=== PATIENT | male | born 1940 | race Caucasian/White ===

== ENCOUNTER 2018-08-05 19:54 | Inpatient (IN) | payer OTHER ==
[~2018-08-05] VITALS: Ht 180.3 cm; Wt 85.7 kg
[~2018-08-05 19:54] MED LIST: AMLODIPINE; ASA81 MG; ASPIRIN; SPIRIVA HANDIH18 MCG; Z.0.AMLODIPINE BESY1; Z.0.LOTENSIN20 MG PO
[2018-08-05] MEDS ORDERED: MORPHINE SULFATE 2 MG/ML SYR IV STA ×2 (20:07→22:39)
[2018-08-05] MEDS ORDERED: PANTOPRAZOLE 40 MG 10ML VIAL IV STA (20:07)
[2018-08-05] MEDS ORDERED: ONDANSETRON HCL INJ 2 MG/ML VIAL IV STA (20:07)
[2018-08-05] MEDS ORDERED: ASPIRIN 81 MG CHEW TAB PO ONE (20:15)
[2018-08-05] MEDS ORDERED: ASPIRIN 81 MG ENTERIC COATED PO ONE (20:23)
[2018-08-05 20:25] LABS: BASOPHILS # (AUTO) 0.1 (0.0-0.1); BASOPHILS % 0.7 % (0.0-1.0); EOSINOPHILS # (AUTO) 0.5 (0.0-0.4); EOSINOPHILS % 4.8 % (0.0-6.0); HEMATOCRIT 42.1 % (38.2-49.6); HEMOGLOBIN 13.5 g/dL (14.0-18.0); LYMPHOCYTES # (AUTO) 1.5 (1.0-3.2); LYMPHOCYTES % 14.9 % (18.0-39.1); MEAN CORPUSCULAR HEMOGLOBIN 27.4 pg (28-32); MEAN CORPUSCULAR HGB CONC 32.1 g/dL (31-35); MEAN CORPUSCULAR VOLUME 85.6 fL (81-99); MONOCYTES # (AUTO) 1.2 (0.2-0.8); MONOCYTES % 11.8 % (4.4-11.3); NEUTROPHILS # (AUTO) 6.8 (2.1-6.9); NEUTROPHILS % 67.3 % (38.7-80.0); PLATELET COUNT 194 x10e3/uL (140-360); RED BLOOD COUNT 4.92 x10e6/uL (4.3-5.7); RED CELL DISTRIBUTION WIDTH 15.7 % (11.7-14.4)
[2018-08-05 20:33] LABS: INR 0.88; PROTHROMBIN TIME 12.8 seconds (11.9-14.5)
[2018-08-05 20:34] LABS: PARTIAL THROMBOPLASTIN TIME 30.7 seconds (23.8-35.5)
[2018-08-05 20:44] LABS: ALBUMIN 3.9 g/dL (3.5-5.0); ALBUMIN/GLOBULIN RATIO 1.1 (0.8-2.0); ANION GAP 13.6 mmol/L (8-16); CALCIUM 9.3 mg/dL (8.4-10.2); CREATININE, SERUM 1.44 mg/dL (0.72-1.25); MAGNESIUM 1.9 MG/DL (1.3-2.1); POTASSIUM 3.6 mmol/L (3.5-5.1)
[2018-08-05 20:51] LABS: CREATINE KINASE MB 1.2 ng/mL (0-5.0)
[2018-08-05] MEDS ORDERED: ADVAIR 100-501 EACH INH (21:00)
[2018-08-05] MEDS ORDERED: BENAZEPRIL HCL20 MG PO (21:00)
[2018-08-05] MEDS ORDERED: OMEPRAZOLE20 MG PO (21:00)
[2018-08-05] MEDS ORDERED: AMLODIPINE BESY10 MG PO (21:00)
[2018-08-05] MEDS ORDERED: VENTOLIN HFA18 GM INH (21:00)
[2018-08-05] MEDS ORDERED: TYLENOL # 31 EA PO (21:00)
--- NOTE | 2018-08-05 21:29 | Diagnostic Imaging Report ---
EXAM: CHEST SINGLE (PORTABLE), AP 1 view INDICATION: Chest pain COMPARISON: AP view of the chest September 21, 2011 FINDINGS: LINES/TUBES: None LUNGS: No consolidations or edema. PLEURA: No effusions or pneumothorax. HEART AND MEDIASTINUM: Normal size and contour. BONES AND SOFT TISSUES: No acute findings. Old left-sided rib fractures. IMPRESSION: No acute thoracic abnormality. Signed by: Dr. Joana Youngblood M.D. on 08/05/2018 9:26 PM
[2018-08-05 23:15] LABS: BILIRUBIN,URINE NEGATIVE (NEGATIVE); CLARITY,URINE CLEAR (CLEAR); COLOR,URINE YELLOW (YELLOW); KETONES,URINE NEGATIVE (NEGATIVE); LEUKOCYTE ESTERASE ,URINE NEGATIVE (NEGATIVE); NITRITE,URINE NEGATIVE (NEGATIVE); PROTEIN,URINE DIPSTICK TRACE (NEGATIVE); URINE UROBILINOGEN 0.2 mg/dL (0.2 - 1)
[2018-08-05 23:16] LABS: EPITHELIAL CELLS,URINE FEW /LPF; RBC,URINE 0-5 /HPF (0-5); WBC,URINE (MAN) 0-5 /HPF (0-5)
[2018-08-06] VITALS (20 sets, daily range): BP systolic 118–196; BP diastolic 66–94
[2018-08-06] MEDS ORDERED: ONDANSETRON HCL INJ 2 MG/ML VIAL IV PRN ×2 (00:45→19:30)
[2018-08-06] MEDS ORDERED: ENOXAPARIN SODIUM INJ 100 MG/ML SYR SC SCH (00:45)
[2018-08-06] MEDS ORDERED: NITROGLYCERIN 0.4 MG SUBL SL PRN (00:45)
[2018-08-06] MEDS ORDERED: MORPHINE SULFATE 2 MG/ML SYR IV PRN (00:45)
[2018-08-06] MEDS ORDERED: FAMOTIDINE 20 MG/2 ML VIAL IV SCH ×2 (00:45→09:00)
--- OUTSIDE RECORDS SUMMARY | 2018-08-06 01:03 | XMS REPORT ---
Author Author [facility] Address Unknown Phone Unavailable Care Team Providers [facility] Associate Professor Name Role Phone Quynh DE SOUZA Unavailable Unavailable Problems This patient has no known problems. Allergies, Adverse Reactions, Alerts This patient has no known allergies or adverse reactions. Medications This patient has no known medications. Results Test Description Test Time Test Comments Text Results Atomic Results Result Comments CHEST SINGLE (PORTABLE) 2018-08-05 21:25:00 [facility] [address] [place] [address] Patient Name: STEPHANIE SKINNER MR #: [id number] : 1940 Age/Sex: 78/M Req #: [id number] Adm Physician: Ordered by: SAURABH DE SOUZA MD Report #: [id number] Location: ER Room/Bed: Procedure: [id number] DX/CHEST SINGLE (PORTABLE) Exam Date: Exam Time: REPORT STATUS: Signed EXAM: CHEST SINGLE (PORTABLE), AP 1 view INDICATION: Chest pain COMPARISON: AP view of the chest September 21, 2011 FINDINGS: LINES/TUBES: None LUNGS: No consolidations or edema. PLEURA: No effusions or pneumothorax. HEART AND MEDIASTINUM: Normal size and contour. BONES AND SOFT TISSUES: No acute findings. Old left-sided rib fractures. IMPRESSION: No acute thoracic abnormality. Signed by: Dr. Hoang Rodriguez M.D. on 08/05/2018 9:26 PM Dictated By: HOANG RODRIGUEZ MD 25 Transcribed By: MARGE on 08/05/182125 COPY TO: SAURABH DE SOUZA MD
[2018-08-06 04:44] LABS: CREATINE KINASE MB 2.4 ng/mL (0-5.0)
[2018-08-06] MEDS ORDERED: ASPIRIN 81 MG ENTERIC COATED PO SCH (09:00)
[2018-08-06 10:26] LABS: CREATINE KINASE MB 6.2 ng/mL (0-5.0)
[2018-08-06] MEDS ORDERED: SODIUM CHLORIDE 0.45% 1,000 ML IV ONE (11:30)
[2018-08-06] MEDS ORDERED: ACETYLCYSTEINE 200 MG/1 ML 10ML VIAL PO SCH (11:30)
[2018-08-06] MEDS ORDERED: CLOPIDOGREL BISULFATE 75 MG TAB PO NR (11:30)
[2018-08-06] MEDS ORDERED: SODIUM CHLORIDE 0.9% 1000ML 1,000 ML IV SCH (11:39)
[2018-08-06] MEDS ORDERED: ACETYLCYSTEINE 200 MG/ML 4ML VIAL PO SCH (11:45)
[2018-08-06] MEDS ORDERED: IPRATROPIUM BROMIDE 0.02% 2.5 ML NEB NEB NR (13:00)
[2018-08-06] MEDS ORDERED: ACETAMINOPHEN/CODEINE 300MG - 30MG TAB PO PRN (13:00)
[2018-08-06] MEDS ORDERED: ALBUTEROL SULFATE HFA 8GM INHALATION AEROSOL INH PRN (13:00)
[2018-08-06] MEDS ORDERED: AMLODIPINE BESYLATE 10 MG TAB PO SCH (13:30)
--- NOTE | 2018-08-06 14:15 | Consultation ---
DATE OF CONSULTATION: August 06, 2018 CARDIOLOGY CONSULTATION REASON FOR CONSULTATION: Chest pain and STEMI. HISTORY OF PRESENT ILLNESS: Mr. Lopez is a 78-year-old gentleman with past medical history of hypertension, COPD, former smoker who presents to this institution with episode of severe chest pain at home. The patient reported that he was in his usual state of health up until last where he developed episodic left parasternal chest pressure, heaviness that lasted for several minutes and spontaneously subsided. He reported feeling a little bit more fatigued than normal. He had a repeat episode on Monday as well and did not think much of it as it subsided. Last night the patient had a severe episode, 10 out of 10 discomfort with radiation up to the left shoulder associated with dyspnea, nausea and malaise. He came into the emergency room with continuous chest pain and finally subsided after receiving morphine intravenously. His EKG showed borderline ST depressions in the inferolateral leads, and was admitted with observation for [place]. His serial cardiac biomarkers showed an elevation going from a troponin of 0.122 to 0.187 to 1.130, which ruled him in for acute myocardial infarction. Luckily the patient at my visit is chest pain free; however, he is apprehensive that he is going to get another chest discomfort episode. We had a long discussion in terms of management options and the patient is agreeable for heart catheterization. He is going to receive aspirin and 600 mg Plavix load in addition to beta amanda, statin. We are waiting for IV Lovenox also to wear off prior to taking him to the cardiac catheterization laboratory on an urgent basis. PAST MEDICAL HISTORY: 1. Hypertension, essential. 2. COPD, former smoker, quit 6 years ago. 3. Alcohol dependence. He says he drinks 1-2 drinks a day. PAST SURGICAL HISTORY: Reports right index finger surgery in the past and history of remote right leg fracture with surgical repair. FAMILY HISTORY: Mother in 60s of unknown cause. Father at 58 with his 7th heart attack. SOCIAL HISTORY: He is a former smoker. He used to smoke a pack to a pack and a half a day. He quit 4 years ago. Denies any illicit drug use. He reports two 7-ounce beers daily for many years. ALLERGIES: NO KNOWN DRUG ALLERGIES. HOME MEDICATIONS: 1. Aspirin 81 mg daily. 2. Norvasc 10 mg daily. 3. Benazepril 20 mg daily. 4. Advair 100/50 mcg discus one dose inhaled b.i.d. REVIEW OF SYSTEMS: GENERAL: Positive for fatigue, malaise. Denies any fevers or chills. HEENT: No headaches, visual complaints, sore throat or stuffy nose. RESPIRATORY: Denies any pleuritic chest pain. He has notable wheezing and nonproductive cough. CARDIOVASCULAR: Chest pain as per HPI. Denies any palpitations, orthopnea, PND, syncope or near syncope. GI: Denies any abdominal pain, bright red blood per rectum, melena, hematemesis, nausea or vomiting. : Denies any dysuria. Does have increased urinary frequency and nocturia and BPH type symptoms. MUSCULOSKELETAL: Positive for chronic arthritis in the leg and intermittent calf pain with ambulation. HEMATOLOGY: Positive for easy bruising. No bleeding. ENDOCRINE: Denies any heat or cold intolerance. NEUROLOGIC: Denies any focal weakness, numbness, tingling, seizures, headaches, TIA or stroke. The remainder of the review of systems is negative except as otherwise mentioned. PHYSICAL EXAMINATION VITAL SIGNS: Height 71 inches, weight 189 pounds, BMI 26.4, temperature 96.0, pulse 76, respiratory rate 20, blood pressure 144/73, O2 sat 94% on room air. GENERAL: This is well-nourished, well-developed gentleman who appears older than his stated age, currently in no apparent distress. HEENT: Normocephalic, atraumatic. Pupils equal, round and react to light. Extraocular movements are intact. Oropharynx is clear. NECK: No elevation of jugular venous pulsation. Faint bilateral carotid bruits. CARDIOVASCULAR: Regular rate and rhythm. Normal S1 and S2. A 2/6 systolic murmur at the left lower sternal border. LUNGS: Diffuse wheezing bilaterally with slight decreased air entry. ABDOMEN: Soft and nontender, obese, with normoactive bowel sounds. No hepatosplenomegaly. BACK: No costovertebral angle tenderness. EXTREMITIES: Warm with 1+ to 2+ bilateral radial pulses, 2+ bilateral femoral pulses, 2+ bilateral posterior tibialis pulse, diminished dorsalis pedis pulses bilaterally. There is some old wound from his right leg injury and his left pinky finger is deformed. NEUROLOGIC: Cranial nerves II-XII are intact. Strength is 5/5 and grossly nonfocal. PSYCHIATRIC: Normal fluent speech. Appropriate affect. No anxiety or delusion. LABORATORY DATA: White count 10.04, hemoglobin 13, hematocrit 42.1, platelets 194,000, sodium 141, potassium 3.6, chloride 105, bicarb 26, BUN 16, creatinine 1.44, glucose of 129, calcium of 9.3, AST 13, ALT 12, alkaline phosphatase 76, total protein 7.4, albumin 3.9, BNP 17.1, troponin went from 0.122 to 0.187 to 1.130. INR is 0.88. UA is unremarkable. Chest x-ray reveals COPD type changes but no acute abnormalities. EKG reveals sinus rhythm with diffuse ST segment depressions that are subtle in the inferolateral leads, perhaps circumflex ischemia. DIAGNOSES 1. Escalating angina over the course of 4 days, now with biomarker positive and has ruled in for a non-ST elevation myocardial infarction. 2. Chronic obstructive pulmonary disease, former smoker. 3. Hypertension, essential. 4. Hypercholesterolemia. 5. Presumably chronic kidney disease 3. PLAN/RECOMMENDATIONS: 1. From a cardiovascular standpoint, we had an extensive discussion with the patient and in terms of management options. Will proceed with definitive ischemic evaluation with a cardiac catheterization. We are worried that he may have another event shortly. 2. Will continue aspirin loaded with Plavix therapy. 3. Statin therapy. 4. Beta amanda therapy as tolerated. 5. Aggressive risk factor modification, medical therapy. 6. Further plans/recommendations to follow after cardiac catheterization. 7. Will go ahead and check echocardiogram to evaluate his left ventricular function. 8. Due to the extensive smoking history and bruit on exam, will do a carotid Duplex in case we find surgical 3-vessel disease and we will know how to proceed. Job#: [id number]
[2018-08-06] MEDS ORDERED: METOPROLOL TARTRATE 25 MG TAB PO SCH (17:00)
[2018-08-06] MEDS ORDERED: FENTANYL CITRATE/PF 100MCG/2 ML INJ ONE (17:32)
[2018-08-06] MEDS ORDERED: LIDOCAINE HCL 2% LOCAL 20 ML VIAL ONE (17:32)
[2018-08-06] MEDS ORDERED: MIDAZOLAM HCL 2 MG/2 ML VIAL ONE ×2 (17:32→18:11)
[2018-08-06] MEDS ORDERED: IOPAMIDOL 370 MG/ML 200 ML INFUS..BTL INJ ONE ×4 (17:33→18:46)
[2018-08-06] MEDS ORDERED: HEPARIN SOD/SOD CHLORIDE 2,000 ML ONE (17:33)
[2018-08-06] MEDS ORDERED: SODIUM CHLORIDE 0.9% 1000ML 1,000 ML ONE (17:33)
[2018-08-06] MEDS ORDERED: BIVALRIUDIN 250 MG/VIAL VIAL IV ONE (18:30)
[2018-08-06] MEDS ORDERED: SODIUM CHLORIDE 0.9% 50ML 50 ML ONE (18:34)
[2018-08-06] MEDS: SALMETEROL/FLUTICASONE 100/50 INH SCH (19:00)
[2018-08-06] MEDS ORDERED: CEFAZOLIN SOD 2 GM/D5W 50ML 50 ML IV ONE (19:18)
[2018-08-06] MEDS: SODIUM CHLORIDE 0.9% 1000ML 1,000 ML IV SCH (19:24)
[2018-08-06] MEDS ORDERED: ZOLPIDEM TARTRATE 5 MG TAB PO PRN (19:30)
[2018-08-06] MEDS ORDERED: MORPHINE SULFATE INJ 4 MG/ML INJ IV PRN (19:45)
[2018-08-06] MEDS: METOPROLOL TARTRATE 25 MG TAB PO SCH (21:00)
[2018-08-06] MEDS ORDERED: ATORVASTATIN 20 MG TAB PO SCH (21:00)
[2018-08-06] MEDS: ACETYLCYSTEINE 200 MG/ML 4ML VIAL PO SCH (21:00)
[2018-08-07] VITALS (22 sets, daily range): BP systolic 110–140; BP diastolic 60–92
[2018-08-07 05:00] LABS: BASOPHILS # (AUTO) 0.1 (0.0-0.1); BASOPHILS % 0.6 % (0.0-1.0); EOSINOPHILS # (AUTO) 0.6 (0.0-0.4); EOSINOPHILS % 4.7 % (0.0-6.0); HEMATOCRIT 37.3 % (38.2-49.6); HEMOGLOBIN 12.2 g/dL (14.0-18.0); LYMPHOCYTES # (AUTO) 1.3 (1.0-3.2); LYMPHOCYTES % 10.3 % (18.0-39.1); MEAN CORPUSCULAR HEMOGLOBIN 28.2 pg (28-32); MEAN CORPUSCULAR HGB CONC 32.7 g/dL (31-35); MEAN CORPUSCULAR VOLUME 86.3 fL (81-99); MONOCYTES # (AUTO) 1.4 (0.2-0.8); MONOCYTES % 11.3 % (4.4-11.3); NEUTROPHILS # (AUTO) 9.1 (2.1-6.9); NEUTROPHILS % 72.6 % (38.7-80.0); PLATELET COUNT 180 x10e3/uL (140-360); RED BLOOD COUNT 4.32 x10e6/uL (4.3-5.7); RED CELL DISTRIBUTION WIDTH 15.4 % (11.7-14.4)
[2018-08-07] MEDS: SODIUM CHLORIDE 0.9% 1000ML 1,000 ML IV SCH (05:42)
[2018-08-07 05:54] LABS: ALBUMIN 3.2 g/dL (3.5-5.0); ANION GAP 14.2 mmol/L (8-16); CALCIUM 8.7 mg/dL (8.4-10.2); CHOL/HDL RATIO 4.4 (3.9-4.7); CREATININE, SERUM 1.33 mg/dL (0.72-1.25); POTASSIUM 4.2 mmol/L (3.5-5.1)
[2018-08-07] MEDS: SALMETEROL/FLUTICASONE 100/50 INH SCH (07:06)
[2018-08-07] MEDS: PANTOPRAZOLE SOD 40 MG TABEC PO SCH ×2 (08:55→09:06)
[2018-08-07] MEDS: METOPROLOL TARTRATE 25 MG TAB PO SCH (08:58)
[2018-08-07] MEDS ORDERED: CLOPIDOGREL BISULFATE 75 MG TAB PO SCH (09:00)
[2018-08-07] MEDS ORDERED: AMLODIPINE BESYLATE 10 MG TAB PO SCH (09:00)
[2018-08-07] MEDS ORDERED: ASPIRIN 325 MG TAB PO SCH (09:00)
[2018-08-07] MEDS: ACETYLCYSTEINE 200 MG/ML 4ML VIAL PO SCH (09:00)
[2018-08-07] MEDS ORDERED: METOPROLOL TART25 MG PO (09:40)
[2018-08-07] MEDS ORDERED: CLOPIDOGREL75 MG PO (09:40)
[2018-08-07] MEDS ORDERED: ATORVASTATIN CA20 MG PO (09:40)
--- NOTE | 2018-08-07 11:42 | Operative Report ---
DATE OF PROCEDURE: August 06, 2018 TITLE OF PROCEDURES 1. Left cardiac catheterization with coronary angiogram and left ventriculogram. 2. Percutaneous coronary intervention and stenting of the mid right coronary artery. 3. Percutaneous coronary intervention and stenting of the 1st obtuse marginal artery. INDICATIONS: Jos-JZ-ekuovmdjw myocardial infarction in a patient with multiple medical risk factors. TECHNICAL DETAILS: This case was done urgently because the patient presented with wya-JJ-hkryfnftu myocardial infarction. After the usual sterile preparation and draping procedures, intravenous Versed and fentanyl given for sedation and local Xylocaine for anesthesia, a 4-Emirati sheath was established in place, Maria Isabel left 4 and 3DRC catheters to engage the coronary, pigtail for left ventriculogram and hemodynamic measurement. A decision was made to proceed with intervention. For that reason, the existing 4-Emirati sheath was upgraded to a 6-Emirati sheath. Guiding catheter initially was 3DRC for the right coronary artery. The lesion was crossed and was stented successfully using 3 x 18 Resolute stent up to 20 atmospheres. Subsequently, it was finished with 3.5 NC balloon. After satisfactory results of the right coronary artery, attention was made to the left system. ACT was done which was in good range. Guiding catheter was XB4. The OM lesion was crossed and ballooned using 2 x 15 Emerge balloon. Subsequently stented using 2 x 15 resolute drug-eluted stent up to 15 atmospheres. Repeated angiogram showed good results. At that time, the case was finished. Attention was made to the right groin, and closure device using Angio-Seal was deployed successfully. There were no immediate complications and no blood loss. RESULTS A. Coronary angiogram. For engagement of the left main, a JL-5 was used and showed the followin. Left main free of disease. 2. LAD: There is 30% to 40% proximal lesion. There is 70% lesion of the 1st diagonal. 3. Ramus: Small artery, 80% diffusely diseased. 4. Circumflex coronary artery: There is 99% lesion of the 1st obtuse marginal, angulated lesion. 5. Right coronary artery: Very large artery, dominant, 80% irregular mid-RCA lesion and 40% distal lesion in the PDA branch. B. Hemodynamics: Aorta pressure 130/80. LV pressure 130/20. PCI PROCEDURE: 1. Right coronary artery: Guiding catheter was 6-Emirati 3DRC. Anticoagulation was Angiomax. Direct stenting with 3 x 18 Resolute drug stent up to 20 atmospheres, finished proximally with 3.5 NC balloon up to 17 atmospheres. Lesion prior to intervention at 80%, following intervention at zero percent. 2. Left circumflex lesion in the 1st obtuse marginal: Guiding catheter was 6-Emirati XB4. The balloon was 2 x 15 up to 12 atmospheres. Subsequently stenting was done with Resolute 2.2 x 15 mm drug-eluted stent up to 15 atmospheres. Lesion prior to intervention at 99%, following intervention at zero percent. 3. Other: Successful closure of the right common femoral artery. IMPRESSION 1. Three-vessel coronary artery disease by definition. 2. Successful percutaneous coronary intervention and stenting of the right coronary artery and the circumflex obtuse marginal with no complication and no blood loss. Job#: [id number]
--- NOTE | 2018-08-07 12:22 | Discharge Summary ---
PRIMARY CARE DOCTOR: Ian Núñez MD, with [facility]. FINAL DIAGNOSIS: [id number]-nnclrszhw myocardial infarction. SECONDARY DIAGNOSES 1. Chronic obstructive pulmonary disease. 2. Hypertension. 3. Mild systolic congestive heart failure, stable, compensated, ejection fraction 40% to 45%. PIG HANDLER: Dr. Smiley, cardiology. PROCEDURES/STUDIES PERFORMED 1. Left heart catheterization. 2. Echocardiogram. HISTORY: Per H and P. HOSPITAL COURSE: The patient was admitted. His 3rd troponin was 1.13. The patient was urgently taken to the cath laboratory technician where PCI was done on his RCA and OM-1. Plavix was added. The patient will continue his aspirin. The patient will also be started on metoprolol and Lipitor. The patient is to continue his benazepril and stop his Norvasc. The patient was seen and examined today. I have also updated his primary care doctor about this hospitalization. The patient will follow up with his PCP in 1 week. It took 32 minutes total to discharge this patient. CONDITION ON DISCHARGE: Stable. DISCHARGE MEDICATIONS: Please see medication reconciliation form. ISABELLA DAHL M.D. Job#: [id number] cc:INA NÚÑEZ MD
== END 2018-08-07 13:46 | disposition home or self-care (01) | DRG 247 ==
LOC: ER 19:54 → ERHOLD 08-06 01:00 → MED/SURG 08-06 02:15 → ICU 08-06 22:54
PROVIDERS: ADMIT Internal Medicine; ATTEND Internal Medicine
PROC: 027135Z Dilation of Coronary Artery, Two Arteries with Two Drug-eluting Intraluminal Devices, Percutaneous Approach (ICD-10-PCS; principal; 2018-08-07)
PROC: 4A023N7 Measurement of Cardiac Sampling and Pressure, Left Heart, Percutaneous Approach (ICD-10-PCS; 2018-08-07)
PROC: B2111ZZ Fluoroscopy of Multiple Coronary Arteries using Low Osmolar Contrast (ICD-10-PCS; 2018-08-07)
PROC: B2151ZZ Fluoroscopy of Left Heart using Low Osmolar Contrast (ICD-10-PCS; 2018-08-07)
DX: I21.4 Non-ST elevation (NSTEMI) myocardial infarction (principal); I50.22 Chronic systolic (congestive) heart failure; I13.0 Hypertensive heart and chronic kidney disease with heart failure and stage 1 through stage 4 chronic kidney disease, or unspecified chronic kidney disease; J44.9 Chronic obstructive pulmonary disease, unspecified; F10.20 Alcohol dependence, uncomplicated; M17.0 Bilateral primary osteoarthritis of knee; N18.3 Chronic kidney disease, stage 3 (moderate)
CPT/HCPCS: 36415; 71045; 80053; 80061; 81001; 82550; 82553; 83735; 83880; 84443; 84484; 85025; 85347; 85610; 85730; 87086; 92928; 92929; 93005; 93306; 93458; 93880; 94640; 99284; C1766; C1874; J0583; J0690; J1650; J2001; J2250; J2270; J2405; J7030; Q9967